=== PATIENT | female | born 1990 | race Caucasian/White ===

== ENCOUNTER 2021-04-25 17:41 | Inpatient (IN) | payer MEDICAID, SELFPAY ==
[2021-04-25] VITALS (39 sets, daily range): BP systolic 101–151; BP diastolic 58–115; PULSE 62–160; RESP 15; TEMP 35.9–36.4; O2SAT 79–100; BMI 26.9
--- NOTE | ~2021-04-25 | US_ITS ---
EXAMINATION: Hallie Cool MD DATE: 04/25/2021 20:09 INDICATION: Limited care during third trimester . TECHNIQUE: Real-time ultrasound of the pelvis was performed. The interpreting radiologist was not pre sent for the study. COMPARISON: 07/21/2010 FINDINGS: There is a single living fetus in vertex presentation. The placenta is anterior fundal. heart rate is 155 beats per minute (bpm). The amniotic fluid index is 15.1 cm, which is normal (5th%-95%: 7 .3-23.9 cm at 38 weeks estimated gestational age). The following biometric data were obtained: BPD: 9.1 cm -> 36 weeks 5 days Head circumference: 32.7 cm -> 37 weeks 1 days Abdominal circumference: 32.6 cm -> 36 weeks 3 days Femur length: 6.6 cm -> 33 weeks 6 days These measurements are concordant. Head circumference to abdominal circumference ratio: 1.01 (normal range 0.93-1.08). Estimated weight: 2795 g (+/-) 419 g, 6 lbs 3 oz (+/-) 15 oz Biophysical profile performed by the technologist: breathing (30 sec sustained breathing in 30 minutes): 2 out of 2 movement (3 gross body movements in 30 minutes: 2 out of 2 tone (one episode of kkrngyp-kgeliktaj-otoyozu limb movement): 2 out of 2 Amniotic fluid pocket (2 cm): 2 out of 2 Total score: 8 out of 8 IMPRESSION: 1. Single living fetus in vertex presentation. 2. Normal amniotic fluid index of 15.1 cm. 3. Biophysical profile 8 out of 8. 4. Gestational age by ultrasound of 36 weeks 0 day(s) +/- 2 weeks and 4 days with ultrasound estimat ed date of delivery (YRIS) of 05/23/2021. Estimated weight is 13th percentile by Hadlock criteria when 05/08/2021 is used as the YRIS. Please correlate with clinical information or earlier ultrasounds for most accurate YRIS. Reviewed, dictated and finalized at location A. SINKER IMPRESSION: 1. Single living fetus in vertex presentation. 2. Normal amniotic fluid index of 15.1 cm. 3. Biophysical profile 8 out of 8. 4. Gestational age by ultrasound of 36 weeks 0 day(s) +/- 2 weeks and 4 days w ith ultrasound estimated date of delivery (YRIS) of 05/23/2021. Estimated w eight is 13th percentile by Hadlock criteria when 05/08/2021 is used as the YRIS. Please correlate with clinical information or earlier ultrasounds for most acc urate YRIS.
--- NOTE | 2021-04-25 19:45 | OBADM ---
This patient, Marcy Rosales, admitted to the OB room OB Post 115 for observation. Patient/family oriented to hospital policies and general routines including ID bracelet, bed and alarms, visiting hours, pain management, procedures, bathroom and other care routines, personal items, smoking policy, room service/diet, and visiting hours. Patient/Family are encouraged to report perceived risks to care and to ask questions if they do not understand what they are told or what they should do.
[2021-04-25 19:47] LABS: Basophils Absolute Auto 0.1 K/mm3 (0.0-0.1); Basophils Percent Auto 0.6 % (0.2-1.2); Eosinophils Absolute Auto 0.1 K/mm3 (0-0.3); Eosinophils Percent Auto 0.7 % (0-4.4); Hematocrit 32.8 % (37.0-47.0); Hemoglobin 10.7 g/dL (12.0-15.0); Immature Granulocyte Absolute 0.34 K/mm3 (0.00-0.031); Immature Granulocyte Percent A 1.7 % (0-0.5); Lymphocytes Absolute Auto 3.22 K/mm3 (0.9-3.2); Lymphocytes Percent Auto 16.4 % (18.3-44.2); Mean Corpuscular HGB Conc 32.6 g/dl (32-36); Mean Corpuscular Hemoglobin 29.4 pg (26-34); Mean Corpuscular Volume 90.1 fl (80-100); Mean Platelet Volume 9.3 fl (7.4-10.4); Neutrophils Absolute Auto 14.8 K/mm3 (1.3-6.7); Neutrophils Percent Auto 75.6 % (45.5-73.1); Platelet Count Result 470 k/mm3 (150-375); Red Blood Count 3.64 M/mm3 (4.2-5.4); Red Cell Distribution Width 13.3 % (11.5-14.5); White Blood Count 19.6 K/mm3 (4.5-10.0)
[2021-04-25 19:58] LABS: Add Urine Microscopic? YES; Appearance Urine Cloudy (Clear); Bacteria Urine Trace /hpf; Bilirubin Urine Negative (Negative); Blood Urine 3+ (Negative); Color Urine Yellow (Yellow); Glucose Urine UA Negative (Negative); Ketones Urine Negative (Negative); Leukocyte Esterase Ur 2+ LEU/UL (Negative); Nitrate Urine Negative (Negative); Protein Urine 1+ mg/dL (Negative); RBC Urine >75 /hpf (0-2); Specific Grav Ur 1.011 (1.001-1.035); Squamous Epithelial Cell Urine Many /hpf (Few); Urobilinogen Urine Negative mg/dL (<2.0); WBC Urine >75 /hpf
[2021-04-25 19:59] LABS: Alanine Aminotransferase 19 U/L (4-35); Albumin Level 3.5 g/dL (3.5-5.1); Alkaline Phosphatase 194 U/L (38-126); Anion Gap 3 mmol/L (8-16); Aspartate Amino Transferase 28 U/L (14-36); Bilirubin,Total 0.4 mg/dL (0.2-1.3); Blood Urea Nitrogen 9 mg/dL (7-17); Calcium 9.9 mg/dL (8.4-10.2); Carbon Dioxide 24 mmol/L (22-30); Chloride 102 mmol/L (98-107); Estimated CRCL calculation 78 ml/min; Estimated Glomerular Filt Rate > 60; Glucose 89 mg/dL (65-110); Potassium 3.7 mmol/L (3.4-5.0); Sodium 129 mmol/L (137-145); Uric Acid 5.3 mg/dL (2.5-7.5)
[2021-04-25 20:04] LABS: Amphetamine Screen Urine Positive (Negative); Barbiturate Screen Urine Negative (Negative); Benzodiazepines Screen Urine Negative (Negative); Cannabinoid Screen Urine Negative (Negative); Cocaine Screen Urine Negative (Negative); Methadone Screen Urine Negative (Negative); Opiate Screen Urine Negative (Negative); Phencyclidine Screen Urine Negative (Negative)
[2021-04-25] MEDS: LACTATED RINGERS 1,000 ML 999 ML IV CONT (20:05)
[2021-04-25 20:08] LABS: Total Protein Urine Random 48 mg/dL; Ur Ttl Prot Creatinine Ratio 0.55 mg/mg (0-0.20)
[2021-04-25] MEDS: ACETAMINOPHEN 500 MG TABLET 1000 MG PO (20:50)
[2021-04-25 20:57] LABS: Rubella IgG Antibody 18.8 IU/ML
[2021-04-25 20:58] LABS: Hepatitis B Surface Anti Res Negative
--- NOTE | 2021-04-25 22:22 | WPDANESEPPF ---
Anes - Initial Pre Proc Eval Procedure: Operation Date: 04/25/21 22:30 Proposed Procedures p Repeat Section - Hallie Cool MD Date/Time: 04/25/21 22:22 Surgeon: Hallie Cool MD Pre Op Diagnosis: Previous C/S Patient Data Age: 31 Gender: F Height: 1.63 m Weight: 71.1 kg Last Vital Signs Temp 36.4 C 04/25/21 19:20 Pulse 88 04/25/21 22:01 BP 101/70 04/25/21 22:01 Pulse Ox 100 04/25/21 22:09 Allergies Allergy/AdvReac Type Severity Reaction Status Date / Time No Known Allergies Allergy Unverified 12/21/15 15:07 Laboratory Tests 04/25/21 04/25/21 04/25/21 19:08 19:08 19:08 WBC RBC Hgb Hct MCV MCH MCHC RDW Plt Count MPV Immature Gran % (Auto) Neut % (Auto) Lymph % (Auto) [place] % (Auto) Eos % (Auto) Baso % (Auto) Lymph # (Auto) [place] # (Auto) Eos # (Auto) Baso # (Auto) Abs Immat Gran (auto) Absolute Neuts (auto) Absolute Nucleated RBC Nucleated RBC % Sodium Potassium Chloride Carbon Dioxide Anion Gap BUN Creatinine Estim Creat Clear Calc Estimated GFR Glucose Uric Acid Calcium Total Bilirubin AST ALT Alkaline Phosphatase Total Protein Albumin Urine Color Yellow (Yellow) Urine Appearance Cloudy H (Clear) Urine pH 7.0 (5.0-9.0) Ur Specific [place] 1.011 (1.001-1.035) Urine Protein 1+ mg/dL H mg/dL (Negative) Urine Glucose (UA) Negative mg/dL mg/dL (Negative) Urine Ketones Negative mg/dL mg/dL (Negative) Ur Blood (Man) 3+ H (Negative) Urine Nitrate Negative (Negative) Urine Bilirubin Negative (Negative) Urine Urobilinogen Negative mg/dL mg/dL (<2.0) Leukocyte Esterase Rfl 2+ LANE/UL H LANE/UL (Negative) Urine RBC >75 /hpf H /hpf (0-2) Urine WBC >75 /hpf H /hpf Ur Squamous Epith Cells Many /hpf H /hpf (Few) Urine Bacteria Trace /hpf /hpf U Random Total Protein 48 mg/dL mg/dL Urine Creatinine 88.0 mg/dL mg/dL Protein/Creat Ratio 2 0.55 mg/mg H mg/mg (0-0.20) Urine Opiates Screen Urine Methadone Screen Ur Barbiturates Screen Ur Phencyclidine Scrn Ur Amphetamine Screen U Benzodiazepines Scrn Urine Cocaine Screen U Cannabinoids Screen Hep Bs Antibody HIV 1&2 Ab/P24 Ag 4thGn Pending Rubella IgG Antibody Blood Type Antibody Screen 04/25/21 04/25/21 04/25/21 19:38 19:38 19:38 WBC 19.6 K/mm3 H K/mm3 (4.5-10.0) RBC 3.64 M/mm3 L M/mm3 (4.2-5.4) Hgb 10.7 g/dL L g/dL (12.0-15.0) Hct 32.8 % L % (37.0-47.0) MCV 90.1 fl fl (80-100) MCH 29.4 pg pg (26-34) MCHC 32.6 g/dl g/dl (32-36) RDW 13.3 % % (11.5-14.5) Plt Count 470 k/mm3 H k/mm3 (150-375) MPV 9.3 fl fl (7.4-10.4) Immature Gran % (Auto) 1.7 % H % (0-0.5) Neut % (Auto) 75.6 % H % (45.5-73.1) Lymph % (Auto) 16.4 % L % (18.3-44.2) [place] % (Auto) 5.0 % % (2.6-8.5) Eos % (Auto) 0.7 % % (0-4.4) Baso % (Auto) 0.6 % % (0.2-1.2) Lymph # (Auto) 3.22 K/mm3 H K/mm3 (0.9-3.2) [place] # (Auto) 1.0 K/mm3 H K/mm3 (0.1-0.6) Eos # (Auto) 0.1 K/mm3 K/mm3
[2021-04-25 22:35] LABS: HIV 1/2 Ab P24 Ag Result Negative (Negative)
[2021-04-25] MEDS: ceFAZolin 2 GM/D5W 50 ML 2 GM/50 ML BAG IVPB (22:43)
--- NOTE | 2021-04-25 22:43 | P.HP_ITS ---
Obstetrics - Admit Note Admission Note: record reviewed. No pertinent additions to the history and/or any subsequent changes in the physical findings that are not consistent with the expected course of the were found. Additions to the history and/or subsequent changes in the physical findings follow. at 38+1 by reported EDC 05/08. Last visit 12/2020 at a clinic in [place] per patient. She denies problems this but has h/o two prior C sections and preeclampsia twice before. She came in for c/o contractions and bleeding and while in L&D had leaking fluid and + ROM+. She agrees to proceed with repeat C/S. GBS unknown, BP normal to mildly elevated, labs negative for severe preeclampsia.
--- NOTE | 2021-04-25 22:46 | WPDHPUPDATE1 ---
History and Physical Update Update Date/Time: 04/25/21 22:46 History and Physical has been reviewed, including an updated exam of the patient. There are NO changes in the patient's condition. Risks, benefits, and alternatives have been discussed and questions answered. Patient agrees to proceed with procedure. at 38+1 by reported EDC with h/o two prior C sections, now with SROM so proceed with repeat C section.
--- NOTE | 2021-04-25 23:35 | W.PM.PROC2 ---
Procedure Note - Detailed Date of Procedure 04/25/21 Pre-op Diagnosis Previous C/S, full term with ruptured membranes Post-op Diagnosis same Procedure Performed Repeat LTCS Surgeon Hallie Cool MD Anesthesia spinal Indications at 38+1 with SROM, h/o two prior C sections Findings Female infant, cephalic (occiput posterior); Apgars 8/9; 5# 13oz' normal uterus, tubes, ovaries Description of Procedure She was taken to the operating room where spinal anesthesia was obtained and found to be adequate. She was prepared and draped in the normal sterile fashion in the dorsal supine position with a leftward tilt. A Pfannenstiel skin incision was made over her prior incision with a scalpel and extended to the underlying layer of fascia. The fascia was incised in the midline with the scalpel and extended laterally with the Mina scissors. The underlying rectus muscles were dissected off sharply. The rectus muscles were in the midline. The peritoneum was entered sharply and extended inferiorly and superiorly with good visualization of the bladder. The bladder blade was inserted. The vesicouterine peritoneum was tented up and entered sharply with the Metzenbaum scissors. The bladder flap was created sharply. The bladder blade was reinserted. The lower uterine segment was incised in a transverse fashion with the scalpel, then the incision was digitally stretched in a cephalocaudal direction. Membranes were ruptured with clear greenish fluid noted consistent with thin meconium. The 's head was delivered atraumatically. The shoulders and body were delivered easily. The cord was clamped x2 and cut. The infant was handed to the awaiting nurse. Cord gas and cord blood was obtained. The placenta was manually extracted. The uterus was exteriorized and cleared of all clots and debris. The uterine incision was closed using 0 Vicryl in a running locked fashion. There was 1 bleeding point to the left of midline, which was controlled easily with an 0 Vicryl [id number] suture. The uterus was returned to the abdomen. The gutters were cleared of all clots and debris. The uterine incision was reinspected and found to be hemostatic. The rectus muscles were reapproximated in the midline using an 0 Vicryl [id number]-jm-kfcyi suture. The rectus muscles were inspected. Any bleeding points were cauterized. The fascia was closed using 0 Vicryl in a running fashion. The subcutaneous tissue was irrigated. Any bleeding points were cauterized. The skin was closed using Insorb absorbable laurel. She tolerated the procedure well. Sponge, lap, needle, and instrument counts were correct x2. She was taken to the recovery room in stable condition. Estimated Blood Loss 720 Drains Yes (Junior) Packing No Pathology yes Complications No immediate complications Condition stable Disposition floor
[2021-04-26] VITALS (47 sets, daily range): BP systolic 84–138; BP diastolic 44–87; PULSE 60–121; RESP 16–20; TEMP 35.9–37.1; O2SAT 96–100
[2021-04-26] MEDS: OXYTOCIN 30 UNITS/NS 500 ML 30 UNITS/500 ML BAG 125 UNITS IV CONT (00:57)
[2021-04-26 02:07] LABS: Anion Gap 6 mmol/L (8-16); Blood Urea Nitrogen 10 mg/dL (7-17); Calcium 9.3 mg/dL (8.4-10.2); Carbon Dioxide 22 mmol/L (22-30); Chloride 104 mmol/L (98-107); Estimated CRCL calculation 78 ml/min; Estimated Glomerular Filt Rate > 60; Glucose 112 mg/dL (65-110); Potassium 4.3 mmol/L (3.4-5.0); Sodium 132 mmol/L (137-145)
[2021-04-26] MEDS: diphenhydrAMINE HCl INJ 50 MG/ML VIAL 25 MG IV PUSH (04:01)
[2021-04-26 06:01] LABS: Basophils Absolute Auto 0.1 K/mm3 (0.0-0.1); Basophils Percent Auto 0.4 % (0.2-1.2); Eosinophils Absolute Auto 0.1 K/mm3 (0-0.3); Eosinophils Percent Auto 0.3 % (0-4.4); Hematocrit 38.2 % (37.0-47.0); Hemoglobin 8.4 g/dL (12.0-15.0); Immature Granulocyte Absolute 0.34 K/mm3 (0.00-0.031); Immature Granulocyte Percent A 1.5 % (0-0.5); Lymphocytes Absolute Auto 2.89 K/mm3 (0.9-3.2); Lymphocytes Percent Auto 13.1 % (18.3-44.2); Mean Corpuscular Hemoglobin 31.1 pg (26-34); Mean Corpuscular Volume 141.5 fl (80-100); Mean Platelet Volume 11.7 fl (7.4-10.4); Monocytes Percent Auto 4.4 % (2.6-8.5); Neutrophils Absolute Auto 17.7 K/mm3 (1.3-6.7); Neutrophils Percent Auto 80.3 % (45.5-73.1); Platelet Count Result 401 k/mm3 (150-375); Red Cell Distribution Width 11.1 % (11.5-14.5)
[2021-04-26] MEDS: DEXTROSE 5%/0.45% SOD CHL 1,000 ML 125 ML IV CONT (06:53)
[2021-04-26] MEDS: NALBUPHINE HCL INJ 10 MG/ML AMPUL 2 MG IV PUSH (08:25)
--- NOTE | 2021-04-26 09:16 | PM.OBPNVD ---
OB - PN: Subj Subjective Date/time seen: 04/26/21 09:16 Patient comments: pain well controlled, incisional pain, tolerating diet, flatus present and other (Lochia similar to menses) baby status: doing well Narrative: She c/o severe itching not relieved with Benadryl. No CP, SOB, dizziness. OB - PN: Obj Data Labs CBC & Chem 7: 04/26/21 05:44 04/26/21 01:39 Labs: Laboratory Results - last 24 hr 04/25/21 04/25/21 04/25/21 19:08 19:08 19:08 WBC RBC Hgb Hct MCV MCH MCHC RDW Plt Count MPV Immature Gran % (Auto) Neut % (Auto) Lymph % (Auto) [place] % (Auto) Eos % (Auto) Baso % (Auto) Lymph # (Auto) [place] # (Auto) Eos # (Auto) Baso # (Auto) Abs Immat Gran (auto) Absolute Neuts (auto) Absolute Nucleated RBC Nucleated RBC % Sodium Potassium Chloride Carbon Dioxide Anion Gap BUN Creatinine Estim Creat Clear Calc Estimated GFR Glucose Uric Acid Calcium Total Bilirubin AST ALT Alkaline Phosphatase Total Protein Albumin Urine Color Yellow Urine Appearance Cloudy H Urine pH 7.0 Ur Specific [place] 1.011 Urine Protein 1+ H Urine Glucose (UA) Negative Urine Ketones Negative Ur Blood (Man) 3+ H Urine Nitrate Negative Urine Bilirubin Negative Urine Urobilinogen Negative Leukocyte Esterase Rfl 2+ H Urine RBC >75 H Urine WBC >75 H Ur Squamous Epith Cells Many H Urine Bacteria Trace U Random Total Protein 48 Urine Creatinine 88.0 Protein/Creat Ratio 2 0.55 H Urine Opiates Screen Urine Methadone Screen Ur Barbiturates Screen Ur Phencyclidine Scrn Ur Amphetamine Screen U Benzodiazepines Scrn Urine Cocaine Screen U Cannabinoids Screen Hep Bs Antibody HIV 1&2 Ab/P24 Ag 4thGn Negative Rubella IgG Antibody Blood Type Antibody Screen 04/25/21 04/25/21 04/25/21 19:38 19:38 19:38 WBC 19.6 H RBC 3.64 L Hgb 10.7 L Hct 32.8 L MCV 90.1 MCH 29.4 MCHC 32.6 RDW 13.3 Plt Count 470 H MPV 9.3 Immature Gran % (Auto) 1.7 H Neut % (Auto) 75.6 H Lymph % (Auto) 16.4 L [place] % (Auto) 5.0 Eos % (Auto) 0.7 Baso % (Auto) 0.6 Lymph # (Auto) 3.22 H [place] # (Auto) 1.0 H Eos # (Auto) 0.1 Baso # (Auto) 0.1 Abs Immat Gran (auto) 0.34 H Absolute Neuts (auto) 14.8 H Absolute Nucleated RBC 0.0 Nucleated RBC % 0.0 Sodium 129 L Potassium 3.7 Chloride 102 Carbon Dioxide 24 Anion Gap 3 L BUN 9 Creatinine 0.80 Estim Creat Clear Calc 78 Estimated GFR > 60 Glucose 89 Uric Acid 5.3 Calcium 9.9 Total Bilirubin 0.4 AST 28 ALT 19 Alkaline Phosphatase 194 H Total Protein 7.0 Albumin 3.5 Urine Color Urine Appearance Urine pH Ur Specific [place] Urine Protein Urine Glucose (UA) Urine Ketones Ur Blood (Man) Urine Nitrate Urine Bilirubin Urine Urobilinogen Leukocyte Esterase Rfl Urine RBC Urine WBC Ur Squamous Epith Cells Urine Bacteria U Random Total Protein Urine Creatinine Protein/Creat Ratio 2 Urine Opiates Screen Urine Methadone Screen Ur Barbiturates Screen Ur Phencyclidine Scrn Ur Amphetamine Screen U Benzodiazepines Scrn Urine Cocaine Screen U Cannabinoids Screen Hep Bs Antibody HIV 1&2 Ab/P24 Ag 4thGn Rubella IgG Antibody Blood Type O Positive Antibody Screen Negative 04/25/21 04/25/21 04/26/21 19:38 19:40 01:39 WBC RBC Hgb Hct MCV MCH MCHC RDW Plt Count MPV Immature Gran % (Auto) Neut % (Auto) Lymph % (Auto) [place] % (Auto) Eos % (Auto) Baso % (Auto) Lymph # (Auto) [place] # (Auto) Eos # (Auto) Baso # (Auto) Abs Immat Gran (auto) Absolute Neuts (auto) Absol
--- NOTE | 2021-04-26 09:27 | WPDANLDNPN2 ---
Anes-Prog Note L&D-Neuraxial Date/Time: 04/26/21 09:27 Neuraxial medications: intrathecal PF morphine Opiod-related complaints: none Patient feedback: Patient satisfied with post-operative pain management.
--- NOTE | 2021-04-26 09:27 | WPDANLDPN2 ---
Anes-Prog Note L&D Date/Time: 04/26/21 09:27 Comfortable throughout: section Neuraxial method: spinal Epidural/Spinal procedure site: clean & non-tender Neuro status: Neuro function grossly intact. Cardiovascular status: normal Respiratory status: normal Airway patency: baseline Mental status: baseline Post-Op hydration status: normal Vital Signs: Last Vital Signs Temp 36.8 C 04/26/21 02:25 Pulse 79 04/26/21 02:25 Resp 16 04/26/21 02:25 BP 93/70 L 04/26/21 02:25 Pulse Ox 100 04/26/21 02:05 Pain score (VAS): 0 I/O: Intake & Output 04/25/21 04/26/21 04/26/21 23:59 07:59 15:59 Intake Total 500 900 Output Total 533 250 Balance 500 -533 650 Post-procedural complaints: none Patient feedback: Patient satisfied with anesthetic care.
[2021-04-26] MEDS: KETOROLAC 30 MG/ML VIAL (*BKC) IV PUSH (09:36)
[2021-04-26] MEDS: POLYSACCHARIDE IRON COMPLEX 150 MG CAPSULE PO ×2 (09:37→16:25)
[2021-04-26] MEDS: DOCUSATE SODIUM 100 MG CAPSULE PO ×2 (09:37→16:25)
--- NOTE | 2021-04-26 12:31 | PCCCNOTE ---
Addendum entered by Suad Levin, HISTOLOGY TECH 04/26/21 15:24: Spoke with Vance Lloyd [phone] [facility] Construction Management Assistant who states they will be out to see pt. tomorrow. Per RN, pt. still pretty sleepy all day and baby out at nurses station most of day. Original Note: Care Coordination. Patient referred to CC for pt. having postive drug screen for amphetamines. UDS negative for baby, but awaiting further cord testing. Met with pt. at bedside, but she was very drowsy. She was laying in bed slumped down and took several minutes to try to arouse pt. to have conversation with me. Pt. was still falling asleep at times. RN reports pt. has had very little medication from them and has been passed out like this. Pt. initially said she lived home with her grandkids, but after further questions recanted and said it was with her grandmother, Carolyn, who she reports lives in [place], [place] though her address in [facility] is [place], [place]. RN reports pt. has had little interaction with baby. Pt. and her mother were unable to feed baby this morning stating baby wouldn't each much, but RN was able to get baby to eat fine. Pt. denies any substance abuse to me. She reports has been living between [place], [place] and [place], [place]. She does not have custody of her other children and reports it was not through [facility], but that her father, Darrel Villalobos, has custody of them. Pt. reports she has had 3-4 visits to a doctor during with last being in Dec. Baby currently having some jitters and temps per RN. Spoke with [facility] hotline, Carin Hazel, Intake ID#[id number] who reports will discuss case with a food and nutrition supervisor, but not taking a report at this time unless baby ends up having positive drug screen. Notified [facility] worker that those labs may not be resulted for discharge. Will follow.
--- NOTE | 2021-04-26 12:33 | PC.NURSE ---
Spoke to Suad, Shipfitter Helper and she has notified DCFS and they will be coming to evaluate.
[2021-04-26] MEDS: HYDROcodone/acetaminophen (*CRX) 5-325 MG TABLET 1 TAB PO (13:52)
--- NOTE | 2021-04-26 15:13 | PC.NURSE ---
1245-Suad from Care Coordination called back. She has spoke to DCFS again and they will not be coming to evaluate pt until cord drug screen results available. Will continue to monitor baby for further withdrawl symptoms and update of any significant changes so DCFS can be made aware. 1320- Notified Dr. Will of DCFS situation and of pts increased temp and heart rate, as well as noted jitteriness and shrill crying. Orders received to begin Eat, Sleep and console.
--- NOTE | 2021-04-26 15:21 | PC.NURSE ---
Addendum entered by Lashell Dean RN 04/26/21 15:31: DCFS have now notified Suad, child care cook, that they will be here to see pt between 11-12 tomorrow, 04/27/21 Original Note: 1245-Suad from care coordination called back. She stated that DCFS notified her they would not be doing an evaluation until the resultof the cord drug screen were available. Will continue to monitor baby for further withdrawl symptoms and update care coordination for changes so DCFS can be notified of changes.
[2021-04-26] MEDS: IBUPROFEN 600 MG TABLET PO (16:29)
[2021-04-26] MEDS: TETANUS,DIPHTHERIA,AC PERTUSSIS ADULT (0.5 ML) BOOSTRIX IM (16:30)
[2021-04-26] MEDS: HYDROcodone/acetaminophen (*CRX) 10-325 MG TABLET 1 TAB PO (20:31)
[2021-04-27] MEDS: HYDROcodone/acetaminophen (*CRX) 5-325 MG TABLET 1 TAB PO ×4 (01:10→19:17)
[2021-04-27] MEDS: IBUPROFEN 600 MG TABLET PO ×4 (01:11→19:17)
[2021-04-27] MEDS: HYDROcodone/acetaminophen (*CRX) 10-325 MG TABLET 1 TAB PO ×3 (04:05→23:31)
[2021-04-27 06:50] VITALS: BP 113/75; PULSE 80; RESP 14; TEMP 36.1; O2SAT 98
[2021-04-27] MEDS: POLYSACCHARIDE IRON COMPLEX 150 MG CAPSULE PO ×2 (07:29→16:20)
[2021-04-27] MEDS: MULTIVIT/MIN/PREN/FOL AC/IRON TABLET 1 TAB PO (07:29)
[2021-04-27] MEDS: DOCUSATE SODIUM 100 MG CAPSULE PO ×2 (07:29→16:20)
--- NOTE | 2021-04-27 08:08 | PM.OBPNVD ---
OB - PN: Subj Subjective Date/time seen: 04/27/21 08:08 Patient comments: no complaints, pain well controlled, tolerating diet, flatus present and other (Ambulating and voiding without problems. Lochia similar to menses) baby status: doing well OB - PN: Obj Data Labs CBC & Chem 7: 04/26/21 05:44 04/26/21 01:39 OB - PN A/P Plan day: 2 (s/p C section, doing well) Plan: routine care Time Spent With Patient Time: Total time spent is greater than 50% in coordination of care (as documented) at patient's floor/unit and/or counseling patient: Time with patient: less than 15 minutes Exam Const: General: no acute distress Resp: Auscultation: clear to auscultation bilaterally Cardio: Rate: regular rate Rhythm: regular rhythm GI: Inspection: non-distended, incision (Intact without erythema, drainage, or induration) and other (Fundus firm and nontender below umbilicus) GI Palp: Yes abdominal tenderness (appropriate) and Yes Soft to palpation Extrem: General: no edema
--- NOTE | 2021-04-27 08:09 | P.DS_ITS ---
DS: Admitting Diagnosis Discharge Date 04/29/2021 Admitting Diagnosis Ruptured membranes, two prior c sections DS: Discharge Diagnosis Discharge Diagnosis (1) S/P repeat low transverse : Code(s): Z98.891 - History of uterine scar from previous surgery Status: Acute OB - DS: Summary OB Procedures : Ultrasound OB Procedures Intrapartum: low cervical, transverse OB Procedures: : None Peripartum Data Infant Delivery Method: Section Procedures: Procedures Operation Date: 04/25/21 22:30 Actual Procedure Side Surgeon p Section Not Applicable Hallie Cool MD complications: none Status at Discharge Functional status at discharge: independent ambulation Overall status at discharge: patient is progressing back to baseline Time Spent with Patient Time attestation: Total time spent providing and/or coordinating discharge services: Time spent: Less than 30 minutes DS: Data Data Completed and Pending Pending studies at discharge: Pending at discharge 04/25/21 23:08 Surgical [PTH] Routine Discharge Plan Discharge Attending physician on discharge: Hallie Cool Discharging Clinician: Hallie Cool Patient Disposition: Home, Self-Care Activity: may shower and pelvic rest Diet: as tolerated Wound Care Instructions: incision open to air Patient Instructions: Antibiotic Form Stand Alone Forms: General Discharge Information Follow-up/Referrals: Hallie Cool MD [Physician] - 1 Week Discharge Medications: New hydrocodone-acetaminophen 5-325 mg Tablet 1 tablet PO Q4H PRN (Reason: Moderate Pain (4-6)) Qty: 30 RF: 0 ibuprofen 600 mg Tablet 600 mg PO Q6H PRN (Reason: Cramping) Qty: 60 RF: 0 Date of admission: 04/25/21 22:12 Primary Care Provider: [facility]IC[facility] Admitting Provider: Hallie Cool Attending physician on admission: Hallie Cool Condition: Stable
--- NOTE | 2021-04-27 15:35 | PCCCNOTE ---
Care Coordination Note. Received call from [employer]OC[employer] Grace supervisor records change/insurance special agent. She came out to see pt. today. She wants to talk with DFS from [place] to decide plan of care for when baby is discharged. She reports discrepancies with pt.'s story. Will follow
[2021-04-27 19:19] VITALS: BP 139/75; PULSE 95; RESP 16; TEMP 36.9
[2021-04-28] MEDS: IBUPROFEN 600 MG TABLET PO ×3 (03:39→20:45)
[2021-04-28] MEDS: HYDROcodone/acetaminophen (*CRX) 5-325 MG TABLET 1 TAB PO ×2 (03:39→11:56)
[2021-04-28 07:30] VITALS: BP 126/81; PULSE 93; RESP 16; TEMP 36.9; O2SAT 98
--- NOTE | 2021-04-28 07:47 | PM.OBPNVD ---
OB - PN: Subj Subjective Date/time seen: 04/28/21 07:47 Patient comments: no complaints, pain well controlled, tolerating diet, flatus present and other (Lochia less than menses. Ambulating and voiding without problems) baby status: doing well OB - PN: Obj Data Labs CBC & Chem 7: 04/26/21 05:44 04/26/21 01:39 OB - PN A/P Plan day: 3 (s/p section, doing well and ready to be discharged home) Plan: routine care, discharge home and other (Follow up in office in 1 week) Time Spent With Patient Time: Total time spent is greater than 50% in coordination of care (as documented) at patient's floor/unit and/or counseling patient: Exam Const: General: no acute distress Resp: Auscultation: clear to auscultation bilaterally Cardio: Rate: regular rate Rhythm: regular rhythm GI: Inspection: non-distended, incision (Intact without erythema, drainage, or induration) and other (Fundus firm and nontender below umbilicus) GI Palp: Yes abdominal tenderness (appropriate) and Yes Soft to palpation Extrem: General: no edema
[2021-04-28 08:00] VITALS: PULSE 93; RESP 16; O2SAT 98
[2021-04-28] MEDS: HYDROcodone/acetaminophen (*CRX) 10-325 MG TABLET 1 TAB PO (08:34)
[2021-04-28] MEDS: POLYSACCHARIDE IRON COMPLEX 150 MG CAPSULE PO ×2 (08:34→16:56)
[2021-04-28] MEDS: DOCUSATE SODIUM 100 MG CAPSULE PO ×2 (08:34→16:56)
--- NOTE | 2021-04-28 14:15 | PCCCNOTE ---
Care Coordination. Spoke with RN this a.m. and this afternoon. Pt. still not feeding or changing baby today. She sleeps most of the day and nursing or pt.'s mother providing infant care. Spoke with Poonam Salomon from [facility] multiple times. She also reports Vance Lloyd [phone] is actual talent sourcing specialist. Also spoke with Jeana Perez [phone] or [phone] (ID#[id number]) [place] DFS regarding pt. situation. Poonam from [facility] reports since pt. is [place] resident and plans to return to [place], they can't take jurisdiction over and don't have positive drug screen for (cord blood pending). Jeana GUTIERREZ DFS reports they can't get involved since pt. is in [place]. Explained to both that pt. and will be ready for discharge tomorrow. Explained my immense concerns numerous times for to be cared for by mother given her lack of interaction/care/bonding with baby while here as well as her positive amphetamine drug screen. Pt.'s other children, Juanita Rosales (about 5 years old) and Nano Gomez (9 years old) are no longer in patient's care. She reports her father, Darrel Villalobos, has custody of them. Will try to discuss situation with life insurance actuary to make a plan tomorrow. Per Jeana with [place] DFS, she will try to notify pt. that they will try to get in touch with her when she returns to [place]. Will follow.
--- NOTE | 2021-04-28 15:30 | PC.NURSE ---
RN hasn't observed mother feeding baby or changing diapers. Patient's mother is taking care of most of baby's needs. Patient is very sleepy and hard to arouse but once awake, will answer simple questions. RN observed baby in bed with mother asleep; RN educated mother on safe sleeping practice for . Spoke with Dr. Cool and Dr. Ortiz several times today about status of pending decision by DCFS. Patient stated to Dr. Ortiz that she and baby would be living in [place] after discharge but told RN that she and baby (if allowed to discharge with mother) will be returning to her [place], [place] address upon discharge. Dr. Ortiz informed me that his office takes [place] patients but does not take [place] patients. Therefore, patient will need to arrange for a different limo driver. See Care Coordination note for update on DCFS status.
[2021-04-28 20:21] VITALS: BP 127/79; PULSE 100; RESP 16; TEMP 36.7
[2021-04-29] MEDS: IBUPROFEN 600 MG TABLET PO ×3 (04:32→17:38)
--- NOTE | 2021-04-29 07:00 | PC.NURSE ---
PT introductions made to Grandma regarding going outside to smoke and keeping infant in open crib and in a safe place not in the bed while mom is sleeping. Introductions made and plan of care briefly discussed.
[2021-04-29 10:30] VITALS: BP 142/92; PULSE 100; RESP 18; TEMP 36.2; O2SAT 99
[2021-04-29] MEDS: POLYSACCHARIDE IRON COMPLEX 150 MG CAPSULE PO ×2 (10:42→17:37)
[2021-04-29] MEDS: DOCUSATE SODIUM 100 MG CAPSULE PO ×2 (10:42→17:37)
[2021-04-29] MEDS: MULTIVIT/MIN/PREN/FOL AC/IRON TABLET 1 TAB PO (10:43)
[2021-04-29] MEDS: ACETAMINOPHEN 325 MG TABLET 650 MG PO ×2 (10:43→17:37)
--- NOTE | 2021-04-29 11:25 | PM.OBPNVD ---
OB - PN: Subj Subjective Date/time seen: 04/29/21 11:25 Patient comments: no complaints, pain well controlled, tolerating diet, flatus present and other (Lochia less than menses. Ambulating and voiding without problems) baby status: doing well OB - PN: Obj Data Labs CBC & Chem 7: 04/26/21 05:44 04/26/21 01:39 OB - PN A/P Plan day: 4 (s/p section, doing well and ready to be discharged home) Plan: routine care, discharge home and other (Follow up in office in 1 week) Time Spent With Patient Time: Total time spent is greater than 50% in coordination of care (as documented) at patient's floor/unit and/or counseling patient: Time with patient: less than 15 minutes Exam Const: General: no acute distress Resp: Auscultation: clear to auscultation bilaterally Cardio: Rate: regular rate Rhythm: regular rhythm GI: Inspection: non-distended, incision (Intact without erythema, drainage, or induration) and other (Fundus firm and nontender below umbilicus) GI Palp: Yes abdominal tenderness (appropriate) and Yes Soft to palpation Extrem: General: no edema
--- NOTE | 2021-04-29 11:30 | PC.NURSE ---
PT out side to smoke accompanied by her mother. PT advised of no smoking policy at [facility].
--- NOTE | 2021-04-29 15:10 | PCCCNOTE ---
Spoke with Poonam Salomon, supervisor microwave at [facility] and Olimpia Cummings, supervisor microwave at [facility] in [place]. It was decided that the 2 child protection supervisors would talk to decide on a plan for this case. Poonam Salomon called back and reports that if the drug test on the umbilical cord is positive, they will take protective custody of Baby Gómez Rosales and will then coordinate with [place]. Per Poonam, [place] has agreed to take the case after it is initiated by [place], if the drug testing is positive. If umbilical cord drug testing is negative, they do not anticipate taking protective custody and [facility] will follow up when mom and baby return to home in [place]. Met with Marcy and her mother, along with RANJAN Johnson. They are aware that no determination will be made by [facility] until the drug testing results are back. They are aware that baby will not be able to be discharged until results are back and there is a plan by [facility]. Marcy plans to stay in a no care bed while baby is still here. Marcy is aware that while in a no care bed it is expected that she will wilburn with and provide care for baby (feed, change, etc). Marcy's mother will stay as well. Will continue to follow for disposition of baby.
--- NOTE | 2021-05-25 11:15 | PM.IMHP ---
H&P: HPI History of Present Illness Date/Time: 05/25/21 11:15 at 38+1 by reported EDC 05/08/2021. She reports her last visit was in 12/2020 at a clinic in [place]. She denies problems this but has h/o two prior C sections and h/o preeclampsia twice before. No WALKER/visual changes. She came in for c/o contractions and bleeding and had gush of fluid after arriving at L&D with + ROM-Plus. Chief Complaint: leaking fluid, contractions Review of Systems Review of Systems: All systems reviewed & are unremarkable except as noted in HPI and below PMFSH Social History Social History Smoking packs per day: 0.5 Smoking cigarettes per day: 10.0 Smoking status: Current every day smoker Tobacco type: cigarettes Second hand tobacco smoke exposure: Yes Meds Home Medications and Allergies Home Medications Medication Instructions Recorded Confirmed Type hydrocodone-acetaminophen 1 tablet PO Q4H PRN #30 tablet 04/27/21 Rx ibuprofen 600 mg PO Q6H PRN #60 tablet 04/27/21 Rx Allergies Allergy/AdvReac Type Severity Reaction Status Date / Time No Known Allergies Allergy Unverified 12/21/15 15:07 Exam Const: General: no acute distress, alert and awake Resp: Auscultation: clear to auscultation bilaterally Cardio: Rate: regular rate Rhythm: regular rhythm GI: Inspection: non-distended GI Palp: Yes Soft to palpation, No Tenderness to palpation present (GI) and Yes Other GI palpation findings present (gravid) Psych: Mental Status: mental status grossly normal Assessment and Plan Assessment and plan (1) Previous delivery affecting : Code(s): O34.219 - Maternal care for unspecified type scar from previous delivery Status: Acute Assessment and Plan: Full term with h/o two prior C sections, ruptured membranes. She agrees to proceed with repeat C section and signed consent after risks, benefits, complications, and alternatives discussed. (2) Gestational hypertension: Code(s): O13.9 - Gestational [-induced] hypertension without significant proteinuria, unspecified trimester Status: Acute Assessment and Plan: BP normal to mildly elevated. No evidence of preeclampsia on labs. Will continue to observe (3) care insufficient: Code(s): O09.30 - Supervision of with insufficient care, unspecified trimester Status: Acute Assessment and Plan: Check tox screen and plan social work consult. She does not have custody of her other children per her report
== END 2021-04-29 19:00 | disposition home or self-care (01) | DRG 540 ==
LOC: ANHOBPP 22:22 → ANHLDR 23:17 → ANHOB2 04-26 02:21
PROVIDERS: Anesthesiology; Admitting Provider Obstetrics & Gynecology; Visit Provider Obstetrics & Gynecology
PROC: 10D00Z1 Extraction of Products of Conception, Low, Open Approach (ICD-10-PCS; CPT 59514; principal; 2021-04-25 22:30)
DX: O62.3 Precipitate labor (principal); O34.211 Maternal care for low transverse scar from previous cesarean delivery; Z37.0 Single live birth; Z3A.38 38 weeks gestation of pregnancy; O90.81 Anemia of the puerperium; D64.9 Anemia, unspecified; O64.0XX0 Obstructed labor due to incomplete rotation of fetal head, not applicable or unspecified; O99.324 Drug use complicating childbirth; F15.90 Other stimulant use, unspecified, uncomplicated
CPT/HCPCS: 36415; 76816; 76819; 80048; 80053; 80307; 81001; 82570; 84112; 84156; 84550; 85025; 86703; 86706; 86762; 86850; 86900; 86901; 87086; 87088; 88307; 90715; A9270; G0432; J0690; J1200; J1885; J2274; J2300; J2405; J2590; J7120